=== PATIENT | female | born 1985 | race African-American/Black ===

== ENCOUNTER 2023-08-10 12:59 | Outpatient (CLI) | payer MEDICAID, OTHER | END 2023-08-10 13:00 | disposition home or self-care (01) | LOC: CSHULT 12:59 | PROVIDERS: ATTEND Family Medicine | DX: O09.523 Supervision of elderly multigravida, third trimester (principal); Z3A.33 33 weeks gestation of pregnancy | CPT/HCPCS: 76805 ==

== ENCOUNTER 2023-09-25 14:37 | Inpatient (IN) | payer MEDICAID ==
[2023-09-25 15:15] VITALS: BMI 38.1
[2023-09-25 16:56] LABS: Creatinine, Urine 146.87 mg/dL (47-110)
[2023-09-25 18:18] LABS: Syphilis Antibody Nonreactive (Nonreactive); Syphilis Antibody Index 0.11 S/CO (<1.00 Non-Reactive)
[2023-09-25 18:19] LABS: HBSAg Index 0.21 S/CO (0-0.99); Hep B Surf Ag - L&D Non-Reactive S/CO (NonReactive)
[2023-09-25 18:25] LABS: Hemoglobin 9.1 g/dL (12.0-15.5); Mean Corpuscular HGB CONC 30.3 g/dL (32.0-36.0); Mean Corpuscular Hemoglobin 19.2 pg (27.0-33.0); Mean Corpuscular Volume 63.4 fl (81.6-98.3); Platelet Count 214 10x3/uL (150-450); RBC Distribution Width 17.7 % (11.5-14.5); Red Blood Cell (RBC) Count 4.73 10x6/uL (3.90-5.03); White Blood Cell (WBC) Count 7.3 10x3/uL (3.5-10.5)
[2023-09-25] MEDS ORDERED: Tranexamic Acid 1,000 MG/10 ML VIAL IVP PRN (18:42)
[2023-09-25] MEDS ORDERED: Lidocaine 1% (PF) 30 ML VIAL SC PRN (18:42)
[2023-09-25] MEDS ORDERED: Acetaminophen 500 MG TAB PO PRN (18:42)
[2023-09-25] MEDS ORDERED: Ibuprofen 800 MG TAB PO PRN (18:42)
[2023-09-25] MEDS ORDERED: Carboprost 250 MCG/ML AMP IM PRN (18:42)
[2023-09-25] MEDS ORDERED: HYDROcodone/Acetaminophen 5/325 mg Tablet PO PRN (18:42)
[2023-09-25] MEDS ORDERED: Misoprostol 200 MCG TAB PR PRN (18:42)
[2023-09-25] MEDS ORDERED: Diphenoxylate HCl/Atropine Tablet PO PRN (18:42)
[2023-09-25] MEDS ORDERED: fentaNYL 50 mcg/mL 1 mL Vial SLOW IVP PRN (18:42)
[2023-09-25] MEDS ORDERED: hydrALAZINE 20 MG/ML VIAL SLOW IVP PRN (18:42)
[2023-09-25] MEDS ORDERED: Ondansetron PF 4 MG/2 ML Vial IVP PRN (18:42)
[2023-09-25] MEDS ORDERED: Promethazine HCl 25 MG/ML VIAL IM PRN (18:42)
[2023-09-25] MEDS ORDERED: Lactated Ringer's 1,000 ML IV SCH (18:45)
[2023-09-25] MEDS ORDERED: Oxytocin 30 units/NS 500 ML 500 ML IV SCH ×3 (18:45)
[2023-09-25 19:56] LABS: ALT (SGPT) Less than 7 U/L (8-55); AST (SGOT) 13 U/L (5-34); Alkaline Phosphatase 82 U/L (40-110); Anion Gap 11 mmol/L (10-20); BUN (Urea Nitrogen) 7 mg/dL (7.0-18.7); Bilirubin, Total 0.4 mg/dL (0.2-1.2); Calc. Creatinine Clearance 242 mL/min (70-130); Calcium 8.9 mg/dL (7.8-10.44); Carbon Dioxide 21 mmol/L (22-29); Chloride 108 mmol/L (98-107); Estimated GFR 116; Globulin 3.4 g/dL (2.4-3.5); Glucose 93 mg/dL (70-105); Protein, Total 6.4 g/dL (6.0-8.3); Sodium 136 mmol/L (136-145)
[2023-09-25 20:11] LABS: HBSAg Index 0.31 S/CO (0-0.99); Hep B Surf Ag - L&D Non-Reactive S/CO (NonReactive)
[2023-09-25 20:12] LABS: Syphilis Antibody Nonreactive (Nonreactive); Syphilis Antibody Index 0.12 S/CO (<1.00 Non-Reactive)
[2023-09-25] MEDS: Misoprostol 100 MCG TAB PO SCH (23:54)
[2023-09-26] MEDS ORDERED: Promethazine HCl 25 MG/ML VIAL IM PRN ×3 (00:59→11:02)
[2023-09-26] MEDS ORDERED: diphenhydrAMINE 50 MG/ML VIAL IVP PRN (00:59)
[2023-09-26] MEDS ORDERED: ePHEDrine Sulfate 50 MG/10 ML VIAL SLOW IVP PRN (00:59)
[2023-09-26] MEDS ORDERED: Ondansetron PF 4 MG/2 ML Vial IVP PRN ×4 (00:59→11:02)
[2023-09-26] MEDS ORDERED: Naloxone HCl 0.4 mg/ml Vial IVP PRN ×4 (00:59→09:32)
[2023-09-26] MEDS ORDERED: Moisturizing Cream (Eucerin) 113 GM JAR TOP PRN (00:59)
[2023-09-26] MEDS ORDERED: Lactated Ringer's 500 ML IV PRN (00:59)
[2023-09-26] MEDS ORDERED: Acetaminophen 325 MG TAB PO PRN (00:59)
[2023-09-26] MEDS ORDERED: fentaNYL 2 mcg/Ropivacaine 0.2% Epidural 100 ML CADD EPIDURAL SCH (01:00)
[2023-09-26] MEDS ORDERED: Communication Order-Pharmacy FS SCH ×2 (01:00→09:45)
[2023-09-26] MEDS: fentaNYL/Ropivacaine Epidural 100 ML ONE (01:01)
[2023-09-26 08:37] LABS: Analyzer IN Cardio CS NICU; RapidComm Collect By CBN; pH (Cord, venous) 7.277 (7.250-7.350)
[2023-09-26 08:39] LABS: Analyzer IN Cardio CS NICU; RapidComm Collect By CBN
[2023-09-26] MEDS ORDERED: Naloxone HCl 0.4 mg/ml Vial IV PRN (09:32)
[2023-09-26] MEDS ORDERED: fentaNYL 50 mcg/mL 1 mL Vial SLOW IVP PRN (09:32)
[2023-09-26] MEDS ORDERED: Promethazine HCl 25 MG SUPP PR PRN (09:32)
[2023-09-26] MEDS ORDERED: HYDROmorphone 0.5 MG/0.5 ML SYRINGE SLOW IVP PRN (09:32)
[2023-09-26] MEDS ORDERED: Ketorolac Tromethamine 30 MG (1 mL) VIAL IVP SCH (09:45)
[2023-09-26] MEDS: Meperidine HCl/PF 25 MG (1 mL) VIAL SLOW IVP PRN (10:40)
[2023-09-26] MEDS ORDERED: Boostrix 0.5 ML (Tdap) VIAL (>/=7 yrs of age) IM ONE (11:02)
[2023-09-26] MEDS ORDERED: hydrALAZINE 20 MG/ML VIAL SLOW IVP PRN (11:02)
[2023-09-26] MEDS ORDERED: Bisacodyl 10 MG SUPP PR PRN (11:02)
[2023-09-26] MEDS ORDERED: Lanolin Ointment 7 GM TUBE TOP PRN (11:02)
[2023-09-26] MEDS: Ketorolac Tromethamine 30 MG (1 mL) VIAL IVP PRN (11:21)
[2023-09-26] MEDS: Azithromycin 500 MG VIAL ONE (12:41)
[2023-09-26] MEDS: CEFAZOLIN 2 GM VIAL ONE (12:41)
[2023-09-26] MEDS: Chloroprocaine 3% PF 20 ML VIAL ONE (12:41)
[2023-09-26] MEDS: Bupivacaine PF 0.5% 30 ML VIAL ONE (12:42)
[2023-09-26] MEDS: CEFAZOLIN 1 GM VIAL ONE (12:42)
[2023-09-26] MEDS: Midazolam HCl 2 mg/2 ml Vial ONE ×2 (12:42)
[2023-09-26] MEDS: Morphine PF 10 MG/10 ML VIAL ONE (12:42)
[2023-09-26] MEDS: Oxytocin 10 UNITS/ML VIAL ONE (12:42)
[2023-09-26] MEDS: Fentanyl 250 MCG/5 ML VIAL ONE (12:42)
[2023-09-26] MEDS: Ketorolac Tromethamine 30 MG (1 mL) VIAL IVP SCH (12:43)
[2023-09-26] MEDS: Oxytocin 30 units/NS 500 ML 500 ML ONE (12:43)
[2023-09-26] MEDS: diphenhydrAMINE 50 MG/ML VIAL IVP PRN (13:05)
[2023-09-26] MEDS: CEFAZOLIN 2 GM in Sodium Chloride 0.9% 100 ML IVPB SCH (14:45)
[2023-09-26] MEDS: Simethicone Chewable 80 MG TAB PO PRN (14:46)
[2023-09-26] MEDS: NIFEdipine XL 30 MG ER.TAB PO SCH (17:54)
[2023-09-26] MEDS: metroNIDAZOLE 500 MG in Premix 1 BAG IVPB SCH (17:55)
[2023-09-26] MEDS: diphenhydrAMINE 25 MG CAP PO PRN (19:42)
[2023-09-26] MEDS: Docusate 100 MG CAP PO SCH (19:42)
[2023-09-26] MEDS: Moisturizing Cream (Eucerin) 113 GM JAR TOP PRN (19:42)
[2023-09-26] MEDS: Ferrous Sulfate 325 MG TAB PO SCH (19:42)
[2023-09-27 04:34] LABS: Hematocrit 25.7 % (34.9-44.5); Hemoglobin 7.9 g/dL (12.0-15.5); Mean Corpuscular HGB CONC 30.7 g/dL (32.0-36.0); Mean Corpuscular Hemoglobin 19.4 pg (27.0-33.0); Mean Corpuscular Volume 63.1 fl (81.6-98.3); Platelet Count 169 10x3/uL (150-450); RBC Distribution Width 17.6 % (11.5-14.5); Red Blood Cell (RBC) Count 4.07 10x6/uL (3.90-5.03)
[2023-09-27] MEDS: Prenatal Vitamin 1 TAB PO SCH (08:51)
[2023-09-27] MEDS: NIFEdipine XL 30 MG ER.TAB PO SCH (08:51)
[2023-09-27] MEDS: HYDROcodone/Acetaminophen 5/325 mg Tablet PO PRN (08:51)
[2023-09-27] MEDS: Ibuprofen 800 MG TAB PO SCH (13:09)
[2023-09-28] MEDS: cloNIDine 0.1 MG TAB PO PRN (16:38)
[2023-09-29] MEDS: HYDROcodone/Acetaminophen 5/325 mg Tablet PO PRN (05:32)
[2023-09-29 11:48] VITALS: BP 125/67; TEMP 98.4
== END 2023-09-29 15:00 | disposition home or self-care (01) | DRG 788 ==
LOC: CSHLD/OP 14:37 → CSHLD 16:29 → CSHPED 09-26 11:37
PROVIDERS: ADMIT Family Medicine; ATTEND Family Medicine
PROC: 10D00Z1 Extraction of Products of Conception, Low, Open Approach (ICD-10-PCS; principal; 2023-09-26)
PROC: 10907ZC Drainage of Amniotic Fluid, Therapeutic from Products of Conception, Via Natural or Artificial Opening (ICD-10-PCS; 2023-09-26)
PROC: 3E0P05Z Introduction of Adhesion Barrier into Female Reproductive, Open Approach (ICD-10-PCS; 2023-09-26)
PROC: 10H07YZ Insertion of Other Device into Products of Conception, Via Natural or Artificial Opening (ICD-10-PCS; 2023-09-26)
DX: O13.4 Gestational [pregnancy-induced] hypertension without significant proteinuria, complicating childbirth (principal); Z3A.39 39 weeks gestation of pregnancy; Z37.0 Single live birth; E66.9 Obesity, unspecified; O99.214 Obesity complicating childbirth; O76 Abnormality in fetal heart rate and rhythm complicating labor and delivery; O69.81X0 Labor and delivery complicated by cord around neck, without compression, not applicable or unspecified
CPT/HCPCS: 36415; 51702; 80053; 82570; 82805; 84156; 85027; 86780; 86850; 86900; 86901; 87340; 88307; 99285; J0665; J0690; J1200; J1885; J2175; J2250; J2274; J2401; J2590; J3010; J3490